=== PATIENT | female | born 1960 | race Caucasian/White ===

== ENCOUNTER 2017-02-10 21:06 | Emergency (ER) | payer OTHER ==
[~2017-02-10] VITALS: Ht 167.6 cm; Wt 61.2 kg
[~2017-02-10 21:06] MED LIST: ADVAIR 100-501 EAC1 INH; ADVAIR 100-501 EACH INH; ADVAIR 250-501 EAC1 INH; ALDACTONE PO; ASPIRIN81 MG PO; EFFER-K 20 MEQ20 MEQ PO; FAMOTIDINE20 M1 PO; FLAGYL PO; FLORINEF0.1 M1 PO; FUROSEMIDE40 MG PO; KEFLEX PO; LIPITOR20 MG PO; LISINOPRIL10 MG PO; LISINOPRIL5 MG PO; LOPRESSOR PO; MULTI VITAMIN1 EACH PO; NITROGLYCERIN0.4 MG SL; ONDANSETRON ODT4 MG PO; OXYCODONE ER PO; PRILOSEC20 MG PO; PRILOSEC40 MG PO; SINGULAIR PO; SYNTHROID PO; SYNTHROID0.1 MG PO; SYNTHROID125 PO; SYNTHROID175 MCG PO; TOPROL XL 50 MG50 MG PO; VITA-C120 GM PO; VITAMIN D400 UNI2 PO; ZANAFLEX PO
== END 2017-02-10 23:17 | disposition left against medical advice (07) ==
LOC: SED 21:06
DX: S30.0XXA Contusion of lower back and pelvis, initial encounter (principal); W01.0XXA Fall on same level from slipping, tripping and stumbling without subsequent striking against object, initial encounter; Y92.481 Parking lot as the place of occurrence of the external cause
CPT/HCPCS: 99283